=== PATIENT | female | born 1940 | race Caucasian/White ===

== ENCOUNTER 2020-06-18 08:51 | Outpatient (CLI) | payer MEDICARE ==
--- NOTE | 2020-06-21 15:54 | MRI ---
BILATERAL BREAST MRI WITH AND WITHOUT IV CONTRAST AND 3D POST PROCESSING ON AN INDEPENDENT WORK STATI ON: HISTORY: An 80-year-old female with unspecified lump in the left breast. No pain or discharge. Cancer remova l from the left breast in 2006 with subsequent inverted nipple since the surgery. COMPARISON: None. CORRELATION: Mammograms of 09/25/2019, 09/17/2018, and 08/30/2017. FINDINGS: There is a round area of artifact in the left lower outer breast which may be due to postop change or calcifications. There is a tiny 3 mm focus of focused contrast enhancement demonstrating a plateau. No other mass or abnormal post contrast enhancement is seen. No internal mammary or axillary lymphadenopathy is note d. IMPRESSION: BIRADS category 3 - probably benign findings. Six-month followup MRI is recommended. This exam was interpreted in consultation with Dr. Hayden Cristobal who concurs. POS: OFF
== END 2020-06-18 08:52 | disposition home or self-care (01) ==
LOC: BICMRI 08:51
PROVIDERS: ATTEND Family Medicine
DX: N63.21 Unspecified lump in the left breast, upper outer quadrant (principal)
CPT/HCPCS: 82565; C8908; A9577

== ENCOUNTER 2020-12-06 14:10 | Outpatient (CLI) | payer MEDICARE ==
[2020-12-06 15:58] LABS: #Basophils 0.1 10x3/uL (0.0-0.2); #Eosinphils 0.1 10x3/uL (0.0-0.5); #Monocytes 0.7 10x3/uL (0.0-1.1); #Neutrophils 5.1 10x3/uL (1.5-8.4); %Basophils 1.2 % (0.0-2.0); %Eosinophils 1.2 % (0.0-6.0); %Monocytes 9.2 % (0.0-10.0); %Neutrophils 68.1 % (40.0-75.0); Hemoglobin 12.4 g/dL (12.0-15.5); Mean Corpuscular HGB CONC 31.4 g/dL (32.0-36.0); Mean Corpuscular Volume 95.4 fl (81.6-98.3); Mean Platelet Volume 11.9 fl (7.4-10.4); Platelet Count 253 10x3/uL (150-450); Red Blood Cell (RBC) Count 4.14 10x6/uL (3.90-5.03); White Blood Cell (WBC) Count 7.5 10x3/uL (3.5-10.5)
[2020-12-06 16:16] LABS: ALT (SGPT) 14 U/L (8-55); AST (SGOT) 17 U/L (5-34); Albumin 4.3 g/dL (3.4-4.8); Alkaline Phosphatase 81 U/L (40-110); Anion Gap 15 mmol/L (10-20); BUN (Urea Nitrogen) 22 mg/dL (9.8-20.1); Bilirubin, Total 0.3 mg/dL (0.2-1.2); Calc. Creatinine Clearance 0 mL/min (70-130); Calcium 9.7 mg/dL (7.8-10.44); Carbon Dioxide 28 mmol/L (23-31); Chloride 99 mmol/L (98-107); Globulin 2.7 g/dL (2.4-3.5); Glucose 155 mg/dL (83-110); Potassium 4.2 mmol/L (3.5-5.1); Sodium 138 mmol/L (136-145)
[2020-12-07 00:46] LABS: SARS-CoV-2 PCR by NAA Not Detected (NotDetected)
== END 2020-12-06 14:11 | disposition home or self-care (01) ==
LOC: LABBT 14:10
PROVIDERS: ATTEND Internal Medicine Cardiovascular Disease
DX: Z01.812 Encounter for preprocedural laboratory examination (principal); I48.19 Other persistent atrial fibrillation; Z20.822 Contact with and (suspected) exposure to COVID-19
CPT/HCPCS: 80053; 85025; U0003; U0005; 87635

== ENCOUNTER 2020-12-09 10:21 | Day surgery (SDC) | payer MEDICARE ==
[2020-12-07 13:35] VITALS: BMI 20.7
[2020-12-09] MEDS ORDERED: PROPOFOL 20 ML ONE (11:20)
[2020-12-09] MEDS ORDERED: Hydrocortisone Sod Succ/PF 100 mg/2 ml Vial ONE (11:27)
[2020-12-09] MEDS ORDERED: Hydrocortisone 1% Cream 30 GM TUBE ONE (11:27)
== END 2020-12-09 12:20 | disposition home or self-care (01) ==
LOC: SDC 10:21
PROVIDERS: ATTEND Internal Medicine Cardiovascular Disease
PROC: 5A2204Z Restoration of Cardiac Rhythm, Single (ICD-10-PCS; principal; 2020-12-09)
DX: I48.19 Other persistent atrial fibrillation (principal); I48.92 Unspecified atrial flutter; I34.0 Nonrheumatic mitral (valve) insufficiency; Z85.3 Personal history of malignant neoplasm of breast; Z87.891 Personal history of nicotine dependence; Z79.01 Long term (current) use of anticoagulants; Z79.899 Other long term (current) drug therapy; Z88.8 Allergy status to other drugs, medicaments and biological substances
CPT/HCPCS: 92960; J1720; J2704

== ENCOUNTER 2022-04-19 10:41 | Outpatient (CLI) | payer MEDICARE | END 2022-04-19 10:42 | disposition home or self-care (01) | LOC: BICMAMMO 10:41 | PROVIDERS: ATTEND Family Medicine | DX: Z13.820 Encounter for screening for osteoporosis (principal); M85.89 Other specified disorders of bone density and structure, multiple sites; Z78.0 Asymptomatic menopausal state | CPT/HCPCS: 77080 ==

== ENCOUNTER 2022-06-27 09:41 | Outpatient (CLI) | payer MEDICARE | END 2022-06-27 09:42 | disposition home or self-care (01) | LOC: BICMRI 09:41 | PROVIDERS: ATTEND Family Medicine | DX: Z08 Encounter for follow-up examination after completed treatment for malignant neoplasm (principal); Z85.3 Personal history of malignant neoplasm of breast; R92.2 Inconclusive mammogram | CPT/HCPCS: 82565; C8908; A9577 ==

== ENCOUNTER 2022-10-17 10:53 | Outpatient (CLI) | payer MEDICARE | END 2022-10-17 10:54 | disposition home or self-care (01) | LOC: BICMAMMO 10:53 | PROVIDERS: ATTEND Family Medicine | DX: Z12.31 Encounter for screening mammogram for malignant neoplasm of breast (principal); Z85.3 Personal history of malignant neoplasm of breast; Z98.890 Other specified postprocedural states | CPT/HCPCS: 77063; 77067 ==

== ENCOUNTER 2025-02-26 12:56 | Outpatient (CLI) | payer MEDICARE | END 2025-02-26 12:57 | disposition home or self-care (01) | LOC: BICMAMMO 12:56 | PROVIDERS: ATTEND Family Medicine | DX: Z12.31 Encounter for screening mammogram for malignant neoplasm of breast (principal); M81.0 Age-related osteoporosis without current pathological fracture; Z98.890 Other specified postprocedural states; Z80.3 Family history of malignant neoplasm of breast; M85.859 Other specified disorders of bone density and structure, unspecified thigh | CPT/HCPCS: 77063; 77067; 77080 ==